=== PATIENT | male | born 1970 | race Caucasian/White ===

== ENCOUNTER 2024-12-03 11:03 | Emergency (ER) | payer SELFPAY ==
[2024-12-03 11:05] VITALS: BP 127/84; PULSE 94; TEMP 36.8; O2SAT 98; BMI 27.5
--- NOTE | 2024-12-03 11:26 | ED_ITS ---
HPI - Extremity Problem General: Chief complaint: Extremity Injury, Lower Stated complaint: right leg injury Time Seen by Provider: 12/03/24 11:13 Source: patient Mode of arrival: ambulatory Limitations: no limitations History of Present Illness: 54-year-old male states he was pulling a pallet at work 2 days ago and slipped states he did not have pain originally but starting yesterday today has been having increasing lateral right hip pain going down his leg. States is much worse with palpation and walking he is able to ambulate denies any pain at rest denies any other injuries Associated symptoms: Deny chest pain, fever(s) or rash Related Data Previous Rx's ?Medication ?Instructions ?Recorded methocarbamol 750 mg tablet 750 mg PO Q6H PRN spasms # 20 tabs 12/03/24 naproxen 500 mg tablet (Naprosyn) 500 mg PO BID PRN pa in #20 tabs 12/03/24 Allergies Allergy/AdvReac Type Severity Reaction Status Date / Time No Known Allergies Allergy Verified 12/03/24 11:10 Review of Systems Const: Denies: fever(s), chills, body aches or change in appetite ENMT: Denies: throat pain or dental pain Card: Denies: chest pain Resp: Denies: dyspnea GI: Denies: abdominal pain, nausea, vomiting or diarrhea Musc: Reports: extremity pain; Denies: neck pain or back pain Skin/Breast: Denies: rash Neuro: Denies: headache(s) Physical Exam Const: COMMON NORMALS: no acute distress, patient oriented x3 and healthy appearing HENMT: COMMON NORMALS: normocephalic and atraumatic HEAD & SCALP: normocephalic and atraumatic Neck/C-Spine: COMMON NORMALS: full ROM and supple Chest: COMMONS NORMALS: normal inspection of the chest Resp: COMMON NORMALS: normal respiratory effort Cardio: COMMON NORMALS: regular rate, regular rhythm and No murmurs present (Cardio) RATE: regular rate RHYTHM: regular rhythm Extremity: COMMON NORMALS: full ROM NARRATIVE EXTREMITY EXAM: Tenderness along right lateral upper leg no deformities distal pulses sensation intact Neuro: COMMON NORMALS: patient oriented x3, moves all extremities and no focal motor deficits Psych: COMMON NORMALS: mental status grossly normal, Normal thought process present and cooperative THOUGHT PROCESS: Normal thought process present Skin: COMMON NORMALS: no rashes or lesions noted and no wounds GENERAL SKIN EXAM: no rashes or lesions noted Course Vital Signs: Vital signs: Vital Signs Temperature 98.2 F 12/03/24 11:05 Pulse Rate 94 12/03/24 11:05 Blood Pressure 127/84 12/03/24 11:05 Pulse Oximetry 98 12/03/24 11:05 Oxygen Delivery Me thod Room Air 12/03/24 11:05 MDM - Extremity (Nontraumatic) Medical Decision Making Patient presents with right leg pains likely a muscle strain no signs of any fractures he is ambulatory he stable for discharge follow-up PCP return if worsening. No radiology studies performed this visit Discharge Plan Discharge Patient Disposition: Home Clinical Impression: Muscle strain of right thigh Condition: Stable Prescriptions: New methocarbamol 750 mg tablet 750 mg PO Q6H PRN (Reason: spasms) Qty: 20 0RF naproxen [Naprosyn] 500 mg tablet 500 mg PO BID PRN (Reason: pain) Qty: 20 0RF Discharge Orders: Discharge ED (Routine); Ordered 12/03/24 Ordered By: Raya Ochoa Discharge Diet: Advance as tolerated Discharge Activity: Resume usual activity Patient Instructions: Muscle Strain (ED) Print Language: German Coding Level of Care Code ED Commercial Credit Officer for Alix Garcia
[2024-12-03] MEDS: HYDROcodone-acetaminophen 5-325 mg Tablet 1 TAB PO (11:29)
[2024-12-03 11:36] VITALS: BP 126/70; PULSE 90; O2SAT 95
== END 2024-12-03 11:37 | disposition home or self-care (01) ==
PROVIDERS: Emergency Provider Emergency Medicine
DX: S76.911A Strain of unspecified muscles, fascia and tendons at thigh level, right thigh, initial encounter (principal); X58.XXXA Exposure to other specified factors, initial encounter
CPT/HCPCS: 99283; J9999